=== PATIENT | female | born 1935 | race Caucasian/White ===

== ENCOUNTER 2022-01-16 05:51 | Day surgery (SDC) | payer OTHER ==
[~2022-01-16 05:51] MED LIST: ARICEPT10 MG PO; CHLORDIAZEPOXIDE5 MG PO; D3 + K2 DOTS 11 EACH PO; LEVO-T50 MCG PO; NORVASC2.5 M1 PO; PROBIOTIC1 EAC4 PO; RALOXIFENE HCL60 MG PO; TOPROL XL25 M1 PO
== END 2022-01-16 11:15 | disposition home or self-care (01) ==
LOC: CIR.AMB 05:51
PROVIDERS: ATTEND Orthopaedic Surgery Hand Surgery
DX: M65.341 Trigger finger, right ring finger (principal); Z87.891 Personal history of nicotine dependence; E11.9 Type 2 diabetes mellitus without complications; E03.9 Hypothyroidism, unspecified; M19.90 Unspecified osteoarthritis, unspecified site

== ENCOUNTER 2022-02-06 10:02 | Outpatient (CLI) | payer OTHER | END 2022-02-06 10:03 | disposition home or self-care (01) | LOC: RX STUDY 10:02 | PROVIDERS: ATTEND Internal Medicine Gastroenterology | DX: R13.10 Dysphagia, unspecified (principal) ==

== ENCOUNTER 2022-10-31 07:30 | Outpatient (CLI) | payer OTHER | END 2022-10-31 07:38 | disposition home or self-care (01) | LOC: SONOGRAMA 07:30 → NUCLEAR 09:00 | PROVIDERS: ATTEND Internal Medicine Gastroenterology | DX: R10.9 Unspecified abdominal pain (principal); K59.00 Constipation, unspecified ==

== ENCOUNTER → 2022-10-31 | Outpatient (CLI) | payer OTHER | END | disposition home or self-care (01) | LOC: NUCLEAR 08:13 | PROVIDERS: ATTEND Internal Medicine Cardiovascular Disease | DX: I11.9 Hypertensive heart disease without heart failure (principal) ==

== ENCOUNTER → 2022-12-26 | Outpatient (CLI) | payer OTHER | END | disposition home or self-care (01) | LOC: TOM 13:46 | PROVIDERS: ATTEND Otolaryngology | DX: J32.0 Chronic maxillary sinusitis (principal) ==